=== PATIENT | male | born 1975 | race Caucasian/White ===

== ENCOUNTER 2017-07-20 00:07 | Emergency (ER) | payer BC ==
[~2017-07-20] VITALS: Ht 188 cm; Wt 72.0 kg
[2017-07-20 00:09] VITALS: BP 202/101; PULSE 52; RESP 16; TEMP 97.4; O2SAT 100
--- NOTE | 2017-07-20 00:24 | PD ---
HPI Chief Complaint: Abdominal Pain Time Seen by Provider: 00:16 Travel History International Travel<30 days: No Contact w/Intl Traveler<30days: No Traveled to known affect area: No History of Present Illness HPI C/O 12 HOUR ONSET OF NAUSEA AND DRY HEAVES, ALONG WITH EPIG REGION ABD DISCOMFORT, 01/20, NONRAD, STATES NO ALLEVIATING/AGGRAVATING FACTORS.... PCP-NO LOCAL DOC PMHX PSHX: GASTRIC BYPASS PFSH Social History Tobacco Use: No Allergies-Medications (Allergen,Severity, Reaction): Coded Allergies: No Known Drug Allergies (Verified Allergy, Unknown, 07/20/17) Reported Meds & Prescriptions Reported Meds & Active Scripts Active Ultram (Tramadol HCl) 50 Mg Tab 50 Mg PO Q4H PRN Zofran Odt (Ondansetron Odt) 4 Mg Tab 4 Mg SL Q6HR PRN Review of Systems Except as stated in HPI: all other systems reviewed are Neg General / Constitutional: No: Fever Eyes: No: Visual changes HENT: No: Headaches Cardiovascular: No: Chest Pain or Discomfort Respiratory: No: Shortness of Breath Gastrointestinal: Positive: Nausea, Abdominal Pain Genitourinary: No: Dysuria Musculoskeletal: No: Pain Skin: No Rash Neurologic: No: Weakness Psychiatric: No: Depression Endocrine: No: Polydipsia Hematologic/Lymphatic: No: Easy Bruising Physical Exam Narrative GENERAL: SKIN: Warm and dry. HEAD: Atraumatic. Normocephalic. EYES: Pupils equal and round. No scleral icterus. No injection or drainage. ENT: No nasal bleeding or discharge. Mucous membranes pink and moist. NECK: Trachea midline. No JVD. CARDIOVASCULAR: Regular rate and rhythm. RESPIRATORY: No accessory muscle use. Clear to auscultation. Breath sounds equal bilaterally. GASTROINTESTINAL: Abdomen soft, non-tender, nondistended. MUSCULOSKELETAL: Extremities without clubbing, cyanosis, or edema. No obvious deformities. NEUROLOGICAL: Awake and alert. No obvious cranial nerve deficits. Motor grossly within normal limits. Five out of 5 muscle strength in the arms and legs. Normal speech. PSYCHIATRIC: Appropriate mood and affect; insight and judgment normal. Data Data Last Documented VS Orders Orders Complete Blood Count With Diff (07/20/17 00:16) Comprehensive Metabolic Panel (07/20/17 00:16) Lipase (07/20/17 00:16) Urinalysis - C+S If Indicated (07/20/17 00:16) Ct Abd/Pel W/O Iv Contrast (07/20/17 00:16) Iv Access Insert/Monitor (07/20/17 00:16) Ecg Monitoring (07/20/17 00:16) Oximetry (07/20/17 00:16) NPO (07/20/17 00:16) Morphine Inj (Morphine Inj) (07/20/17 00:30) Ondansetron Inj (Zofran Inj) (07/20/17 00:30) Sodium Chloride 0.9% Flush (Ns Flush) (07/20/17 00:30) Electrocardiogram (07/20/17 00:16) Morphine Inj (Morphine Inj) (07/20/17 02:00) Ondansetron Inj (Zofran Inj) (07/20/17 02:00) Pantoprazole Inj (Protonix Inj) (07/20/17 02:00) Ed Discharge Order (07/20/17 02:32) Labs Laboratory Tests Test 07/20/17 00:31 07/20/17 02:25 White Blood Count 10.5 TH/MM3 Red Blood Count 5.22 MIL/MM3 Hemoglobin 15.5 GM/DL Hematocrit 46.8 % Mean Corpuscular Volume 89.8 FL Mean Corpuscular Hemoglobin 29.7 PG Mean Corpuscular Hemoglobin Concent 33.1 % Red Cell Distribution Width 13.3 % Platelet Count 269 TH/MM3 Mean Platelet Volume 8.4 FL Neutrophils (%) (Auto) 82.9 % Lymphocytes (%) (Auto) 11.0 % Monocytes (%) (Auto) 5.4 % Eosinophils (%) (Auto) 0.2 % Basophils (%) (Auto) 0.5 % Neutrophils # (Auto) 8.7 TH/MM3 Lymphocytes # (Auto) 1.2 TH/MM3 Monocytes # (Auto) 0.6 TH/MM3 Eosinophils # (Auto) 0.0 TH/MM3 Basophils # (Auto) 0.1 TH/MM3 CBC Comment DIFF FINAL Differential Comment Blood Urea Nitrogen 18 MG/DL Creatinine 0.99 MG/DL Random Glucose 149 MG/DL Total Protein 8.8 GM/DL Albumin 3.8 GM/DL Calcium Level 9.5 MG/DL Alkaline Phosphatase 115 U/L Aspartate Amino Transf (AST/SGOT) 37 U/L Alanine Aminotransferase (ALT/SGPT) 25 U/L Total Bilirubin 0.7 MG/DL Sodium Level 138 MEQ/L Potassium Level 4.4 MEQ/L Chloride Level 102 MEQ/L Carbon Dioxide Level 25.4 MEQ/L Anion Gap 11 MEQ/L Estimat Glomerular Filtration Rate 84 ML/MIN Lipase 213 U/L Urine Color YELLOW Urine Turbidity CLEAR Urine pH 6.0 Urine Specific [place] 1.028 Urine Protein 30 mg/dL Urine Glucose (UA) 300 mg/dL Urine Ketones 10 mg/dL Urine Occult Blood TRACE Urine Nitrite NEG Urine Bilirubin NEG Urine Urobilinogen 2.0 MG/DL Urine Leukocyte Esterase NEG Urine RBC 7 /hpf Urine WBC 1 /hpf Urine Squamous Epithelial Cells <1 /hpf Urine Hyaline Casts 3 /lpf Urine Mucus FEW /lpf Microscopic Urinalysis Comment CULT NOT INDICATED MDM Medical Decision Making Medical Screen Exam Complete: Yes Emergency Medical Condition: Yes Medical Record Reviewed: Yes Interpretation(s) SINUS RONY, 49, NL INTERVALS, NO STEMI PATTERN, MOTION ARTIFACT Differential Diagnosis PANCREATITIS V GASTROENTERITIS V ILEUS V SBO V APPY V COMPLICATIONS Narrative Course CMP AND CBC WERE WNL, CT NEG FOR SBO/ILEUS/APPY/ AND ONLY POSITIVE FOR ENTERITIS TYPE OF FINDINGS. PATIENT STILL C/O PAIN, WILL GIVE SECOND DOSE OF MORPHINE, PROTONIX IV X1 THEN D/C HOME Diagnosis Primary Impression: Gastroenteritis Patient Instructions: Gastroenteritis (ED), General Instructions Scripts Tramadol (Ultram) 50 Mg Tab 50 MG PO Q4H Y for PAIN, #20 TAB 0 Refills Prov: Dipesh Ro MD 07/20/17 Ondansetron Odt (Zofran Odt) 4 Mg Tab 4 MG SL Q6HR Y for Nausea/Vomiting, #30 TAB 0 Refills Prov: Dipesh Ro MD 07/20/17 Disposition: 01 DISCHARGE HOME Condition: Stable Dipesh Ro MD Jul 20, 2017 00:24
[2017-07-20] MEDS ORDERED: SODIUM CHLORIDE 0.9% FLUSH 10 ML FLUSH IV FLUSH PRN (00:30)
[2017-07-20] MEDS ORDERED: MORPHINE SULFATE 4 MG/ML INJ IV PUSH ONE ×2 (00:30→02:00)
[2017-07-20] MEDS ORDERED: ONDANSETRON HCL 4 MG/2 ML VIAL IVP ONE ×2 (00:30→02:00)
[2017-07-20 00:39] LABS: AUTOMATED NEUTROPHIL # 8.7 TH/MM3 (1.8-7.7); BASOPHIL # 0.1 TH/MM3 (0-0.2); BASOPHIL % 0.5 % (0.0-2.0); EOSINOPHIL % 0.2 % (0.0-4.0); HEMATOCRIT 46.8 % (39.0-51.0); HEMO FLAGS DIFF FINAL; LYMPHOCYTE # 1.2 TH/MM3 (1.0-4.8); MEAN CELL VOLUME 89.8 FL (80.0-100.0); MEAN CORPUSCULAR HEMOGLOBIN 29.7 PG (27.0-34.0); MEAN CORPUSCULAR HGB CONC 33.1 % (32.0-36.0); MONO % 5.4 % (0.0-8.0); NEUT % 82.9 % (16.0-70.0); PLATELET COUNT 269 TH/MM3 (150-450); RED BLOOD COUNT 5.22 MIL/MM3 (4.50-5.90); RED CELL DISTRIBUTION WIDTH 13.3 % (11.6-17.2); WHITE BLOOD COUNT 10.5 TH/MM3 (4.0-11.0)
[2017-07-20 00:51] VITALS: PULSE 50; RESP 17; O2SAT 98
[2017-07-20 00:58] LABS: ALKALINE PHOSPHATASE 115 U/L (45-117); TOTAL BILIRUBIN ADULT 0.7 MG/DL (0.2-1.0)
[2017-07-20 01:02] LABS: ALT (GPT) 25 U/L (12-78); ANION GAP 11 MEQ/L (5-15); AST (GOT) 37 U/L (15-37); BICARBONATE 25.4 MEQ/L (21.0-32.0); BLOOD UREA NITROGEN 18 MG/DL (7-18); CHLORIDE 102 MEQ/L (98-107); GLOMERULAR FILTRATION RATE 84 ML/MIN (>89); SODIUM (NA) 138 MEQ/L (136-145)
--- NOTE | 2017-07-20 01:09 | RADRPT ---
EXAM DATE/TIME: 07/20/2017 00:47 [facility] COMPARISON: No previous studies available for comparison. INDICATIONS : Right sided abdominal pain with nausea and vomiting. ORAL CONTRAST: No oral contrast ingested. RADIATION DOSE: 6.64 CTDIvol (mGy) MEDICAL HISTORY : None SURGICAL HISTORY : Gastric bypass. ENCOUNTER: Initial ACUITY: 1 day PAIN SCALE: 10/10 LOCATION: Right abdomen TECHNIQUE: Volumetric scanning of the abdomen and pelvis was performed. Using automated exposure control and ad justment of the mA and/or kV according to patient size, radiation dose was kept as low as reasonably achievable to obtain optimal diagnostic quality images. DICOM format image data is available electro nically for review and comparison. FINDINGS: Examination of the lung bases demonstrates no abnormality. No pleural fluid is identified. No pulmona ry nodules are present. There are postsurgical changes involving the stomach in this patient with gas tric bypass. There is thickening of the wall of the stomach involving the antrum and pyloric channel. The appearance is nonspecific. Endoscopy is recommended for further evaluation if clinically indicat ed. The gallbladder is normal without wall thickening or pericholecystic fluid. The pancreas demonstr ates normal contour without evidence of mass or ductal dilatation. The adrenal glands and kidneys donta ear normal bilaterally. No hydronephrosis or mass lesions are identified. Examination of the pelvis demonstrates no evidence of free fluid or pelvic mass. No abnormally enlarg ed inguinal or retroperitoneal lymph nodes are present. The bladder is unremarkable. CONCLUSION: 1. Nonspecific thickening of the wall the stomach of uncertain significance. This may reflect infecti ous or inflammatory process. Endoscopy is recommended for further evaluation if clinically indicated. Jaspal Mcgregor MD on July 20, 2017 at 1:02 Board Certified Radiologist. This report was verified electronically.
[2017-07-20 01:12] LABS: POTASSIUM 4.4 MEQ/L (3.5-5.1)
[2017-07-20] MEDS ORDERED: ZOFR4TAB3 SL (01:52)
[2017-07-20] MEDS ORDERED: TRAM50 PO (01:52)
[2017-07-20] MEDS ORDERED: PANTOPRAZOLE SODIUM 40 MG VIAL IVP ONE (02:00)
[2017-07-20 02:43] VITALS: BP 194/100; PULSE 52; RESP 20; O2SAT 100
[2017-07-20 03:17] LABS: BLOOD, URINE TRACE (NEG); GLUCOSE,URINE 300 mg/dL (NEG); HYALINE CAST, URINE 3 /lpf (RARE); KETONE, URINE 10 mg/dL (NEG); MUCUS URINE FEW /lpf (OCC); NITRITE,URINE NEG (NEG); SQUAMOUS EPITHELIAL CELL URINE <1 /hpf (0-5); URINE COLOR YELLOW (YELLW/STRAW)
[2017-07-20 03:20] LABS: COMMENT (UR) CULT NOT INDICATED; CULTURE IF INDICATED CULT NOT INDICATED
--- NOTE | 2017-07-20 18:36 | EKG ---
Date Performed: 07/20/2017 Time Performed: 00:29:26 PTAGE: 41 years EKG: SINUS BRADYCARDIA MINIMAL VOLTAGE CRITERIA FOR LVH, CONSIDER NORMAL VARIANT BORDERLINE ECG NO PREVIOUS TRACING DOCTOR: Jessica Pritchett Interpretating Date/Time 07/20/2017 18:34:46
== END 2017-07-20 03:39 | disposition home or self-care (01) ==
LOC: NEPE 00:07
DX: K52.9 Noninfective gastroenteritis and colitis, unspecified (principal); R00.1 Bradycardia, unspecified
CPT/HCPCS: 74176; 80053; 81001; 83690; 85025; 93005; 96374; 96375; 96376; 99285; C9113; J2270; J2405

== ENCOUNTER 2017-07-30 22:11 | Observation (INO) | payer BC ==
[~2017-07-30] VITALS: Ht 188 cm; Wt 63.0 kg
[~2017-07-30 22:11] MED LIST: TRAM50 PO; ZOFR4TAB3 SL
[2017-07-30 22:12] VITALS: BP 192/114; PULSE 114; RESP 20; TEMP 98.9; O2SAT 100
[2017-07-30] MEDS ORDERED: SODIUM CHLOR 0.9% 1000 ML INJ 1,000 ML IV SCH (23:12)
[2017-07-30] MEDS ORDERED: ONDANSETRON HCL 4 MG/2 ML VIAL IVP ONE (23:15)
[2017-07-30] MEDS ORDERED: SODIUM CHLORIDE 0.9% FLUSH 10 ML FLUSH IV FLUSH PRN (23:15)
[2017-07-30] MEDS ORDERED: MORPHINE SULFATE 4 MG/ML INJ IV PUSH ONE (23:15)
--- NOTE | 2017-07-30 23:17 | PD ---
HPI Chief Complaint: GI Complaint Time Seen by Provider: 23:12 Travel History International Travel<30 days: No Contact w/Intl Traveler<30days: No Traveled to known affect area: No History of Present Illness HPI 41-year-old male patient with history of gastric bypass, seen 10 days ago for abdominal pains, here because of ongoing pains for 10 days in the upper abdomen with nausea and vomiting. He denies any fevers, diarrhea, or other symptoms. He states the pain is a 9 out of 10 currently. He is supposed to follow-up with bypass specialist in the area but has not yet had a chance to follow-up. Modifying Factors: None Associated Signs & Symptoms: Upper abdominal pains for 10 days, nausea and vomiting Risk Factors: Gastric bypass history, done in [facility] Past Medical History Hypertension: Yes Past Surgical History Abdominal Surgery: Yes (GASTRIC BYPASS 2014) Social History Alcohol Use: No Tobacco Use: No Substance Use: No Allergies-Medications (Allergen,Severity, Reaction): Coded Allergies: No Known Drug Allergies (Verified Allergy, Unknown, 07/30/17) Reported Meds & Prescriptions Reported Meds & Active Scripts Active Ultram (Tramadol HCl) 50 Mg Tab 50 Mg PO Q4H PRN Zofran Odt (Ondansetron Odt) 4 Mg Tab 4 Mg SL Q6HR PRN Review of Systems Except as stated in HPI: all other systems reviewed are Neg Physical Exam Narrative GENERAL: Well-developed middle age male patient in moderate distress. Awake and oriented 3. SKIN: Focused skin assessment warm/dry. HEAD: Atraumatic. Normocephalic. EYES: Pupils equal and round. No scleral icterus. No injection or drainage. ENT: No nasal bleeding or discharge. Mucous membranes pink and moist. NECK: Trachea midline. No JVD. CARDIOVASCULAR: Regular rate and rhythm. No murmur appreciated. RESPIRATORY: No accessory muscle use. Clear to auscultation. Breath sounds equal bilaterally. GASTROINTESTINAL: Abdomen soft, upper abdominal tenderness without guarding or rebound, nondistended. Hepatic and splenic margins not palpable. MUSCULOSKELETAL: No obvious deformities. No clubbing. No cyanosis. No edema. NEUROLOGICAL: Awake and alert. No obvious cranial nerve deficits. Motor grossly within normal limits. Normal speech. PSYCHIATRIC: Appropriate mood and affect; insight and judgment normal. Data Data Last Documented VS Vital Signs Date Time Temp Pulse Resp B/P (MAP) Pulse Ox O2 Delivery O2 Flow Rate FiO2 07/30/17 23:17 18 07/30/17 22:12 98.9 114 192/114 (140) 100 Room Air Orders Orders Complete Blood Count With Diff (07/30/17 23:12) Comprehensive Metabolic Panel (07/30/17 23:12) Lipase (07/30/17 23:12) Urinalysis - C+S If Indicated (07/30/17 23:12) Ct Abd/Pel W Iv Contrast(Rout) (07/30/17 23:12) Iv Access Insert/Monitor (07/30/17 23:12) Ecg Monitoring (07/30/17 23:12) Oximetry (07/30/17 23:12) Morphine Inj (Morphine Inj) (07/30/17 23:15) Ondansetron Inj (Zofran Inj) (07/30/17 23:15) Sodium Chlor 0.9% 1000 Ml Inj (Ns 1000 M (07/30/17 23:12) Sodium Chloride 0.9% Flush (Ns Flush) (07/30/17 23:15) Morphine Inj (Morphine Inj) (07/31/17 01:15) Iohexol 350 Inj (Omnipaque 350 Inj) (07/31/17 01:36) Upper Gi Series With [employer] (07/31/17 ) Labs Laboratory Tests Test 07/30/17 00:30 White Blood Count 9.4 TH/MM3 Red Blood Count 4.23 MIL/MM3 Hemoglobin 12.8 GM/DL Hematocrit 37.0 % Mean Corpuscular Volume 87.3 FL Mean Corpuscular Hemoglobin 30.3 PG Mean Corpuscular Hemoglobin Concent 34.7 % Red Cell Distribution Width 12.9 % Platelet Count 261 TH/MM3 Mean Platelet Volume 8.2 FL Neutrophils (%) (Auto) 77.7 % Lymphocytes (%) (Auto) 12.2 % Monocytes (%) (Auto) 9.6 % Eosinophils (%) (Auto) 0.2 % Basophils (%) (Auto) 0.3 % Neutrophils # (Auto) 7.3 TH/MM3 Lymphocytes # (Auto) 1.2 TH/MM3 Monocytes # (Auto) 0.9 TH/MM3 Eosinophils # (Auto) 0.0 TH/MM3 Basophils # (Auto) 0.0 TH/MM3 CBC Comment DIFF FINAL Differential Comment Urine Color YELLOW Urine Turbidity HAZY Urine pH 8.5 Urine Specific [place] 1.020 Urine Protein TRACE mg/dL Urine Glucose (UA) NEG mg/dL Urine Ketones 40 mg/dL Urine Occult Blood NEG Urine Nitrite NEG Urine Bilirubin NEG Urine Urobilinogen 4.0 MG/DL Urine Leukocyte Esterase NEG Urine RBC 0-3 /hpf Urine WBC 0-2 /hpf Urine Squamous Epithelial Cells 0-5 /hpf Urine Amorphous Sediment LARGE Urine Bacteria RARE /hpf Microscopic Urinalysis Comment CULT NOT INDICATED Blood Urea Nitrogen 22 MG/DL Creatinine 0.73 MG/DL Random Glucose 98 MG/DL Total Protein 7.5 GM/DL Albumin 3.3 GM/DL Calcium Level 8.8 MG/DL Alkaline Phosphatase 101 U/L Aspartate Amino Transf (AST/SGOT) 13 U/L Alanine Aminotransferase (ALT/SGPT) 15 U/L Total Bilirubin 0.6 MG/DL Sodium Level 135 MEQ/L Potassium Level 3.4 MEQ/L Chloride Level 99 MEQ/L Carbon Dioxide Level 25.8 MEQ/L Anion Gap 10 MEQ/L Estimat Glomerular Filtration Rate 120 ML/MIN Lipase 177 U/L [facility] Medical Decision Making Medical Screen Exam Complete: Yes Emergency Medical Condition: Yes Medical Record Reviewed: Yes Interpretation(s) Laboratory Tests Test 07/30/17 00:30 Red Blood Count 4.23 MIL/MM3 (4.50-5.90) Hemoglobin 12.8 GM/DL (13.0-17.0) Hematocrit 37.0 % (39.0-51.0) Neutrophils (%) (Auto) 77.7 % (16.0-70.0) Monocytes (%) (Auto) 9.6 % (0.0-8.0) Urine Turbidity HAZY (CLEAR) Urine Ketones 40 mg/dL (NEG) Urine Urobilinogen 4.0 MG/DL (LESS THAN Urine Bacteria RARE /hpf (NONE) Blood Urea Nitrogen 22 MG/DL (7-18) Albumin 3.3 GM/DL (3.4-5.0) Aspartate Amino Transf (AST/SGOT) 13 U/L (15-37) Sodium Level 135 MEQ/L (136-145) Potassium Level 3.4 MEQ/L (3.5-5.1) Last 24 hours Impressions Abdomen/Pelvis CT 07/30/17 [id number] Signed Impressions: Service Date/Time: Monday, July 31, 2017 01:23 - CONCLUSION: 1. There is a mild amount of free fluid in the dependent pelvis. 2. No dilated loops of small or large bowel. Bao Gardner MD Differential Diagnosis Upper abdominal pains with nausea and vomiting: Obstruction versus gastritis versus pancreatitis versus gastroenteritis versus bypass related issues Narrative Course Lab work did not show any significant metabolic issues or acute renal failure or UTI. CAT scan was unremarkable for any signs of acute processes. However, patient has required 2 doses of morphine at this point due to pain. He appears to be doing poorly for the past 10 days. Apparently had talked to Dr. Howell's office regarding these issues and has been told to come to the ER and requests bypass surgery consultation should symptoms worsen. At this point, case was discussed with Dr. Howell who would like me to do an upper GI series and get the patient admitted as an observation. Case was discussed with Dr. Farnsworth for admission. Diagnosis Primary Impression: Intractable abdominal pain Additional Impression: H/O gastric bypass Admitting Information Admitting Physician Requests: Admit Rocio Alvarez MD Jul 30, 2017 23:17
[2017-07-31] VITALS (7 sets, daily range): BP systolic 0–204; BP diastolic 0–109; PULSE 45–56; RESP 18–24; TEMP 96.1–98.4; O2SAT 96–100
[2017-07-31 00:01] LABS: AUTOMATED NEUTROPHIL # 7.3 TH/MM3 (1.8-7.7); BASOPHIL % 0.3 % (0.0-2.0); EOSINOPHIL % 0.2 % (0.0-4.0); HEMO FLAGS DIFF FINAL; LYMPH % 12.2 % (9.0-44.0); LYMPHOCYTE # 1.2 TH/MM3 (1.0-4.8); MEAN CELL VOLUME 87.3 FL (80.0-100.0); MEAN CORPUSCULAR HEMOGLOBIN 30.3 PG (27.0-34.0); MEAN CORPUSCULAR HGB CONC 34.7 % (32.0-36.0); MONO % 9.6 % (0.0-8.0); NEUT % 77.7 % (16.0-70.0); PLATELET COUNT 261 TH/MM3 (150-450); RED BLOOD COUNT 4.23 MIL/MM3 (4.50-5.90); RED CELL DISTRIBUTION WIDTH 12.9 % (11.6-17.2); WHITE BLOOD COUNT 9.4 TH/MM3 (4.0-11.0)
[2017-07-31 00:19] LABS: BLOOD, URINE NEG (NEG); GLUCOSE,URINE NEG (NEG); KETONE, URINE 40 mg/dL (NEG); NITRITE,URINE NEG (NEG); PH, URINE 8.5 (5.0-8.5); URINE COLOR YELLOW (YELLW/STRAW)
[2017-07-31 00:21] LABS: ALT (GPT) 15 U/L (12-78); ANION GAP 10 MEQ/L (5-15); AST (GOT) 13 U/L (15-37); BICARBONATE 25.8 MEQ/L (21.0-32.0); BLOOD UREA NITROGEN 22 MG/DL (7-18); CHLORIDE 99 MEQ/L (98-107); GLOMERULAR FILTRATION RATE 120 ML/MIN (>89); POTASSIUM 3.4 MEQ/L (3.5-5.1); SODIUM (NA) 135 MEQ/L (136-145)
[2017-07-31 00:24] LABS: ALKALINE PHOSPHATASE 101 U/L (45-117); TOTAL BILIRUBIN ADULT 0.6 MG/DL (0.2-1.0)
[2017-07-31 00:43] LABS: BACTERIA, URINE RARE /hpf; RBC, URINE 0-3 /hpf (0-3); SQUAMOUS EPITHELIAL CELL URINE 0-5 /hpf (0-5); WBC, URINE 0-2 /hpf (0-5)
[2017-07-31 00:44] LABS: COMMENT (UR) CULT NOT INDICATED; CULTURE IF INDICATED CULT NOT INDICATED
[2017-07-31] MEDS ORDERED: MORPHINE SULFATE 2 MG/ML INJ IV PUSH ONE (01:15)
[2017-07-31] MEDS ORDERED: IOHEXOL 350 MG/ML 10 ML VIAL (for RAD DIAG) IVCONTRAST ONE (01:36)
--- NOTE | 2017-07-31 01:44 | RADRPT ---
EXAM DATE/TIME: 07/31/2017 01:23 [facility] COMPARISON: No previous studies available for comparison. INDICATIONS : Abdominal pain. IV CONTRAST: 94 cc Omnipaque 350 (iohexol) IV ORAL CONTRAST: No oral contrast ingested. RADIATION DOSE: 6.64 CTDIvol (mGy) MEDICAL HISTORY : Hypertension. SURGICAL HISTORY : Gastric bypass. ENCOUNTER: Initial ACUITY: 2 days PAIN SCALE: 7/10 LOCATION: abdomen TECHNIQUE: Volumetric scanning of the abdomen and pelvis was performed. Using automated exposure control and ad justment of the mA and/or kV according to patient size, radiation dose was kept as low as reasonably achievable to obtain optimal diagnostic quality images. DICOM format image data is available electro nically for review and comparison. FINDINGS: LOWER LUNGS: The visualized lower lungs are clear. LIVER: Homogeneous density without lesion. There is no dilation of the biliary tree. No calcified gallston es. SPLEEN: Normal size without lesion. PANCREAS: Within normal limits. KIDNEYS: Normal in size and shape. There is no mass, stone or hydronephrosis. ADRENAL GLANDS: Within normal limits. VASCULAR: There is no aortic aneurysm. BOWEL/MESENTERY: Nondilated loops of small or large bowel. Surgical suture about the stomach. There is a mild amount of free fluid in the dependent pelvis between the rectum and urinary bladder measuring up to 12 mm i n thickness. ABDOMINAL WALL: Within normal limits. RETROPERITONEUM: There is no lymphadenopathy. BLADDER: No wall thickening or mass. REPRODUCTIVE: Within normal limits. INGUINAL: There is no lymphadenopathy or hernia. MUSCULOSKELETAL: Within normal limits for patient age. CONCLUSION: 1. There is a mild amount of free fluid in the dependent pelvis. 2. No dilated loops of small or large bowel. Bao Gardner MD on July 31, 2017 at 1:39 Board Certified Radiologist. This report was verified electronically.
[2017-07-31] MEDS ORDERED: PROPOFOL 200 MG/20 ML AMP IV ONE (02:30)
[2017-07-31] MEDS ORDERED: SODIUM CHLORIDE 0.9% FLUSH 10 ML FLUSH IV FLUSH PRN (02:30)
[2017-07-31] MEDS ORDERED: BISACODYL 10 MG SUPP RECTAL PRN (02:30)
[2017-07-31] MEDS ORDERED: LACTULOSE SYRUP 20 GM/30 ML CUP PO PRN (02:30)
[2017-07-31] MEDS ORDERED: METOPROLOL TARTRATE 5 MG/5 ML VIAL IV PUSH ONE (02:30)
[2017-07-31] MEDS ORDERED: ACETAMINOPHEN/HYDROcodone 325 MG/5 MG TAB PO PRN (02:30)
[2017-07-31] MEDS ORDERED: ONDANSETRON HCL 4 MG/2 ML VIAL IVP PRN (02:30)
[2017-07-31] MEDS ORDERED: MAGNESIUM HYDROXIDE SUSP 30 ML CUP PO PRN (02:30)
[2017-07-31] MEDS ORDERED: ACETAMINOPHEN 325 MG TAB PO PRN (02:30)
[2017-07-31] MEDS ORDERED: SENNOSIDES 8.6 MG TAB PO PRN (02:30)
[2017-07-31] MEDS ORDERED: MORPHINE SULFATE 2 MG/ML INJ IV PRN (02:45)
[2017-07-31] MEDS: SODIUM CHLOR 0.9% 1000 ML INJ 1,000 ML IV SCH ×2 (03:01→13:04)
--- NOTE | 2017-07-31 03:14 | HHI.HP ---
[facility] No Primary Care Physician Admission Diagnosis intractable abdominal pain/gastric bypass patient Diagnoses: (1) Intractable abdominal pain Diagnosis: Principal (2) H/O gastric bypass Diagnosis: Principal (3) Hypokalemia Diagnosis: Principal (4) HTN (hypertension) Diagnosis: Principal (5) Anemia Diagnosis: Principal Travel History International Travel<30 Days: No Contact w/Intl Traveler <30 Da: No Traveled to Known Affected Are: No History of Present Illness This is a 41-year-old male with a PMH of Gastric Bypass 2014 in [facility] who presented to the ER with complaints of abdominal pain in addition to nausea and vomiting for approx 10 days. Seen in ER on 07/20/17 for similar complaints, CT Abd/Pelvis at that time w/ nonspecific thickening of wall of stomach of uncertain significance, endoscopy recommended, labs unremarkable, d/c'd from ER w/ Tramadol and Zofran. Returns now w/ ongoing abdominal pain unrelieved by Tramadol. On arrival, BP 192/114, HR 114, O2 sat 100% on RA, Afebrile. Hemoglobin 12.8, previously 15.5 on 07/20/17. Chemistry essentially remarkable except for BUN 22. K+ 3.4. U/a negative. CT Abd/Pelvis w/ mild amount of free fluid in dependent pelvis, no dilated loops of small and large bowel. Dr. Howell consulted by ER physician, recommended Upper GI Series and will eval in am. Review of Systems Except as stated in HPI: all other systems reviewed are Neg Past Family Social History Past Medical History PMH: Gastric Bypass 2015 Past Surgical History PAST SURGICAL HISTORY: Gastric Bypass 2014 Allergies: Coded Allergies: No Known Drug Allergies (Verified Allergy, Unknown, 07/30/17) Family History PAST FAMILY HISTORY: Reviewed. No h/o DM or CAD Social History PAST SOCIAL HISTORY: Negative for alcohol, tobacco or drugs. Physical Exam Vital Signs Vital Signs Date Time Temp Pulse Resp B/P (MAP) Pulse Ox O2 Delivery O2 Flow Rate FiO2 07/30/17 23:17 18 07/30/17 22:12 98.9 114 20 192/114 (140) 100 Room Air Physical Exam PE: GENERAL: Middle-aged male in no acute distress. HEENT: PERRLA, EOMI. No scleral icterus or conjunctival pallor. No lid lag or facial droop. CARDIOVASCULAR: Regular rate and rhythm. No obvious murmurs to auscultation. No chest tenderness to palpation. RESPIRATORY: No obvious rhonchi or wheezing. Clear to auscultation. Breath sounds equal bilaterally. GASTROINTESTINAL: Abdomen soft, generalized tenderness to palpation, nondistended. BS normal. MUSCULOSKELETAL: Extremities without clubbing, cyanosis, or edema. No obvious deformities. NEUROLOGICAL: Awake, alert and oriented x4. No focal neurologic deficits. Moving both upper and lower extremities spontaneously. Result Diagram: 07/30/172907/30/1729 Caprini VTE Risk Assessment Caprini VTE Risk Assessment: No/Low Risk (score <= 1) Caprini Risk Assessment Model Point Value = 1 Point Value = 2 Point Value = 3 Point Value = 5 Age 41-60 Minor surgery BMI > 25 kg/m2 Swollen legs Varicose veins or History of unexplained or recurrent spontaneous Oral contraceptives or hormone replacement Sepsis (< 1 month) Serious lung disease, including pneumonia (< 1 month) Abnormal pulmonary function Acute myocardial infarction Congestive heart failure (< 1 month) History of inflammatory bowel disease Medical patient at bed rest Age 61-74 Arthroscopic surgery Major open surgery (> 45 min) Laparoscopic surgery (> 45 min) Malignancy Confined to bed (> 72 hours) Immobilizing plaster cast Central venous access Age >= 75 History of VTE Family history of VTE Factor V Leiden Prothrombin [id number] Lupus anticoagulant Anticardiolipin antibodies Elevated serum homocysteine Heparin-induced thrombocytopenia Other congenital or acquired thrombophilia Stroke (< 1 month) Elective arthroplasty Hip, pelvis, or leg fracture Acute spinal cord injury (< 1 month) Prophylaxis Regimen Total Risk Factor Score Risk Level Prophylaxis Regimen 0-1 Low Early ambulation 2 Moderate Order ONE of the following: *Sequential Compression Device (SCD) *Heparin 5000 units SQ BID 3-4 Higher Order ONE of the following medications: *Heparin 5000 units SQ TID *Enoxaparin/Lovenox 40 mg SQ daily (WT < 150 kg, CrCl > 30 mL/min) *Enoxaparin/Lovenox 30 mg SQ daily (WT < 150 kg, CrCl > 10-29 mL/min) *Enoxaparin/Lovenox 30 mg SQ BID (WT < 150 kg, CrCl > 30 mL/min) AND/OR *Sequential Compression Device (SCD) 5 or more Highest Order ONE of the following medications: *Heparin 5000 units SQ TID (Preferred with Epidurals) *Enoxaparin/Lovenox 40 mg SQ daily (WT < 150 kg, CrCl > 30 mL/min) *Enoxaparin/Lovenox 30 mg SQ daily (WT < 150 kg, CrCl > 10-29 mL/min) *Enoxaparin/Lovenox 30 mg SQ BID (WT < 150 kg, CrCl > 30 mL/min) AND *Sequential Compression Device (SCD) Assessment and Plan Problem List: (1) Intractable abdominal pain ICD Code: R10.9 - Unspecified abdominal pain Status: Acute (2) Hypokalemia ICD Code: E87.6 - Hypokalemia (3) H/O gastric bypass ICD Code: Z98.890 - Other specified postprocedural states Status: Acute (4) HTN (hypertension) ICD Code: I10 - Essential (primary) hypertension (5) Anemia ICD Code: D64.9 - Anemia, unspecified Assessment and Plan A/P: 1. Intractable Abd Pain: c/o abdominal pain x10 days, seen in ER on 07/20/17 for similar complaints, CT Abd/Pelvis w/ thickening of stomach, unclear etiology , now w/ ongoing abdominal pain. CT Abd/Pelvis now w/ no acute findings, images reviewed by me. Dr. Howell consulted, recommended GI Series, currently pending. Analgesics/antiemetics as needed. Clear liquid. 2. H/o [facility]: [facility], pending follow up w/ local surgeon. 3. Hypokalemia: Mild. K+ 3.4. Repeat labs and replace as needed. 4. HTN: Uncontrolled. BP 190's, likely compounded by pain complaints. Lopressor IV x1. Monitor BP. 5. Anemia: Hgb 12.8, previously 15.5 on 07/20/17. No active bleeding noted. Monitor Hgb/Hct. 6. DVT Prophylaxis: SCD/Teds. 7. Social work for d/c planning as needed. 8. Case discussed w/ ER physician at length. Problem Qualifiers (1) Anemia: Rosa Farnsworth MD Jul 31, 2017 03:14
[2017-07-31] MEDS: SODIUM CHLORIDE 0.9% FLUSH 10 ML FLUSH IV FLUSH SCH ×2 (07:58→21:48)
[2017-07-31] MEDS: DOCUSATE SODIUM 50 MG/SENNA 8.6 MG TAB PO SCH ×2 (07:58→21:00)
[2017-07-31] MEDS ORDERED: HYDROmorphone HCL PF 1 MG/ML VIAL IV PUSH PRN (08:15)
[2017-07-31] MEDS ORDERED: DIATRIZOATE MEGLUM/DIATRIZOATE SOD 120 ML BTL (for RAD DIAG) PO ONE (09:30)
--- NOTE | 2017-07-31 09:39 | PD.CONS ---
HPI History of Present Illness This is a 41 year old male with hx roshan en y and ring procedure in 2015 who presented with abd pain, nausea vomiting, weakness, hiccups, intermittent fever , hypertention. Onset 3 weeks ago. n/v is intermittent, he vomits mostly saliva and has dry heaving. He does not vomit food. Solid food makes him nauseous and starts dry heaves. He is having RUQ sharp stabbing pains and LUQ pressure. The hiccups make the pain worse. The pain at times goes to his upper back and sides of his arms. Pain is crampy and intermittent. Never had pain like this before. No blood in vomit, no diarrhea, no acid reflux or heartburn, no blood in stool or black tarry stool. NO BM in 3 days. Has been consuming only liquids, cannot tolerate liquids. he had EGD in [facility] prior to his bariatric surgery, can recall no abnormal findings. He has lost 20lbs in the last 2 months that he feels is at a faster rate than he had been losing d /t surgery. Never had colonoscopy. Pt had appt to see Dr Howell in office next week. (Hailey Rhodes) PFSH Past Medical History PMH: Gastric Bypass 2014 Past Surgical History PAST SURGICAL HISTORY: Gastric Bypass 2014 (Hailey Rhodes) Coded Allergies: No Known Drug Allergies (Verified Allergy, Unknown, 07/30/17) Family History PAST FAMILY HISTORY: Reviewed. No h/o DM or CAD Social History PAST SOCIAL HISTORY: Negative for alcohol or drugs. Was smoking 5 cigarettes daily but has not smoked in last couple weeks d/t illness. (Hailey Rhodes) Review of Systems Constitutional: COMPLAINS OF: Fever Eyes: DENIES: Blurred vision Ears, nose, mouth, throat: DENIES: Hearing loss Respiratory: DENIES: Hemoptysis Cardiovascular: DENIES: Chest pain Gastrointestinal: COMPLAINS OF: Abdominal pain, Constipation, Nausea, Vomiting , DENIES: Black stools, Bloody stools, Diarrhea, Swelling of Abdomen, Heartburn , Hematemesis Genitourinary: DENIES: Hematuria Musculoskeletal: DENIES: Joint Swelling Integumentary: DENIES: Rash Hematologic/lymphatic: DENIES: Bruising Immunologic/allergic: DENIES: Eczema Neurologic: DENIES: Abnormal gait Psychiatric: DENIES: Confusion (Hailey Rhodes) GI Exam Vitals I&O Vital Signs Date Time Temp Pulse Resp B/P (MAP) Pulse Ox O2 Delivery O2 Flow Rate FiO2 07/31/17 08:05 186/109 (134) 07/31/17 08:02 97.3 52 18 0/0 (0) 100 07/31/17 05:16 98.4 56 18 151/94 (113) 96 07/31/17 05:01 16 07/31/17 02:50 55 18 168/101 (123) 98 Room Air 07/30/17 23:17 18 07/30/17 22:12 98.9 114 20 192/114 (140) 100 Room Air Physical Examination GENERAL: thin HEENT: PERRL; normocephalic; atraumatic; no jaundice. CHEST: CTA CARDIAC: RRR ABDOMEN: Soft, nondistended, LUQ TTP; no hepatosplenomegaly; bowel sounds are present in all four quadrants. EXTREMITIES: No clubbing, cyanosis, or edema. SKIN: Normal; no rash; no jaundice. [employer]: No focal deficits; alert and oriented times three. (Hailey Rhodes) Assessment and Plan Plan ASSESSMENT - Abd pain, n/v - RUQ pain and LUQ pressure, nausea, dry heaves, hiccups. labs unremarkable. CT 07/20 showed nonspecific thickening stomach wall and CT shows mild amt free fluid dependent pelvis. hx roshan en y bypass 2014. Normal EGD 2014. never had colonoscopy. GS consulted, UGI series pending. Dr Howell planning to do EGD and follow pt. - anemia - mild. normocytic. hgb did drop from 15.5 to 12.8 since 07/20/17. No louis bleeding. PLAN - stool for occult blood - diet per GS - await UGI series - await GS eval - GS will do EGD and follow pt, d/w primary - supportive care - GI will sign off, please reconsult if needed. This pt seen by myself and Dr Rangel and this note is written on his behalf (Hailey Rhodes) Physician Comments Patient seen and examined Agree with above Continue with current supportive care Monitor labs It seems at this point that his issue is more surgical and therefore we will defer to the surgery service We will sign off (Forrest Rangel MD) Hailey Rhodes Jul 31, 2017 09:39 Forrest Rangel MD Jul 31, 2017 20:02
--- NOTE | 2017-07-31 09:40 | RADRPT ---
EXAM DATE/TIME: 07/31/2017 09:09 This report includes an Addendum and supersedes previous reports for this exam. [facility] COMPARISON: CT ABDOMEN & PELVIS W CONTRAST, July 31, 2017, 1:23. INDICATIONS : Abdominal pain, nausea, vomiting FLUORO TIME: 0.9 minutes IMAGE COUNT: 16 CONTRAST: 1. MD Chavis MEDICAL HISTORY : Hypertension. SURGICAL HISTORY : Gastric bypass. ENCOUNTER: Initial ACUITY: 2 weeks PAIN SCORE: 7/10 LOCATION: Bilateral upper quadrant FINDINGS: Preliminary film demonstrates postsurgical findings in the left upper quadrant. Mild left convex thor acolumbar scoliosis and prominent left-sided upper lumbar spine osteophytes. Bowel gas pattern within normal limits. Patient swallowed Gastrografin contrast. Contrast passed through the esophagus and into the gastric r emnant without delay. Contrast passes into the proximal small bowel without delay. No evidence of shane k CONCLUSION: Postsurgical appearance consistent with the history of gastric bypass. No evidence of leak or obstruc tion. Terell Jin MD on July 31, 2017 at 9:35 Board Certified Radiologist. This report was verified electronically. ADDENDUM: There is extension of contrast into the gastric remnant. Terell Jin MD on July 31, 2017 at 10:01 Board Certified Radiologist. This report was verified electronically.
--- NOTE | 2017-07-31 10:21 | HHI.PR ---
Objective Vitals/I&O Vital Signs Date Time Temp Pulse Resp B/P (MAP) Pulse Ox O2 Delivery O2 Flow Rate FiO2 07/31/17 09:50 16 07/31/17 08:05 186/109 (134) 07/31/17 08:02 97.3 52 100 07/31/17 02:50 Room Air A/P Assessment and Plan hx rygb epigastric pain, +smoking, full consult dictated, concern for GJ ulcer, possible G-G fistula PLAN ppi, carafate NPO at me will plan for EGD likely tomorrow Michael Howell MD Jul 31, 2017 10:21
--- NOTE | 2017-07-31 11:14 | HHI.PR ---
Subjective Remarks Follow up for abdominal pain/nausea/vomiting. The patient reports excruciating 10/10 pain earlier this morning, unrelieved by IV morphine. Given IV dilaudid with significant relief of pain and he was able to tolerate clear liquids for breakfast. He locates the pain mostly to the LUQ/epigastric area with some radiation to the RUQ. His nausea has been fairly well controlled with IV zofran. He has not had BM in 3 days however reports very minimal oral intake over the past 7-10days. He denies any recent sick contacts or eating any raw/ undercooked foods. Denies any recent fevers/chills, however did feel flushed at times. He has an upcoming appointment to establish with Dr. Howell on 08/04. Objective Vitals Vital Signs Date Time Temp Pulse Resp B/P (MAP) Pulse Ox O2 Delivery O2 Flow Rate FiO2 07/31/17 09:50 16 07/31/17 09:50 16 07/31/17 08:05 186/109 (134) 07/31/17 08:02 97.3 52 18 0/0 (0) 100 07/31/17 05:16 98.4 56 18 151/94 (113) 96 07/31/17 05:01 16 07/31/17 02:50 55 18 168/101 (123) 98 Room Air 07/30/17 23:17 18 07/30/17 22:12 98.9 114 20 192/114 (140) 100 Room Air Result Diagram: 07/30/17 0030 07/30/17 0030 Imaging Last Impressions Upper GI Series 07/31/17 0000 Signed Impressions: Service Date/Time: Monday, July 31, 2017 09:09 - CONCLUSION: Postsurgical appearance consistent with the history of gastric bypass. No evidence of leak or obstruction. Terell Jin MD ADDENDUM: There is extension of contrast into the gastric remnant. Terell Jin MD Abdomen/Pelvis CT 07/30/17 2314 Signed Impressions: Service Date/Time: Monday, July 31, 2017 01:23 - CONCLUSION: 1. There is a mild amount of free fluid in the dependent pelvis. 2. No dilated loops of small or large bowel. Bao Gardner MD Objective Remarks GENERAL: Well-nourished, well-developed pleasant middle aged male patient in NAD. at bedside. SKIN: Warm and dry. No rash. HEENT: Normocephalic. Atraumatic.Pupils equal and round. Mucous membranes pink and moist. CARDIOVASCULAR: Regular rate and rhythm. S1, S2 noted. No murmur appreciated. RESPIRATORY: No accessory muscle use. Clear to auscultation. Breath sounds equal bilaterally. GASTROINTESTINAL: Scaphoid abdomen, soft, nondistended, mild TTP at LUQ and epigastric area. Normoactive bowel sounds x4. MUSCULOSKELETAL: No obvious deformities. Extremities without clubbing, cyanosis , or edema. NEUROLOGICAL: Awake and alert. No obvious cranial nerve deficits. Motor grossly within normal limits. Normal speech. PSYCHIATRIC: Appropriate mood and affect; insight and judgment normal. Medications and IVs Current Medications Medications (Trade) Dose Ordered Sig/Daniel Route Start Time Stop Time Status Last Admin Sodium Chloride 1,000 ml @ 100 mls/hr Q10H IV 07/31/17 02:26 07/31/17 03:01 (NS Flush) 2 ml UNSCH PRN IV FLUSH 07/31/17 02:30 (NS Flush) 2 ml BID IV FLUSH 07/31/17 09:00 07/31/17 07:58 (Zofran Inj) 4 mg Q6H PRN IVP 07/31/17 02:30 07/31/17 08:07 (Tylenol) 650 mg Q6H PRN PO 07/31/17 02:30 ([place] 5-325 Mg) 1 tab Q4H PRN PO 07/31/17 02:30 07/31/17 07:58 (Morphine Inj) 2 mg Q3H PRN IV 07/31/17 02:45 07/31/17 04:56 (Irene-Colace) 1 tab BID PO 07/31/17 09:00 07/31/17 07:58 (Milk Of Magnesia Liq) 30 ml Q12H PRN PO 07/31/17 02:30 (Senokot) 17.2 mg Q12H PRN PO 07/31/17 02:30 (Dulcolax Supp) 10 mg DAILY PRN RECTAL 07/31/17 02:30 (Lactulose Liq) 30 ml DAILY PRN PO 07/31/17 02:30 (Dilaudid Pf Inj) 1 mg Q4H PRN IV PUSH 07/31/17 08:15 07/31/17 08:41 (Protonix Inj) 40 mg Q12H IV PUSH 07/31/17 11:00 (Carafate Liq) 1 gm Q6H PO 07/31/17 12:00 A/P Problem List: (1) Intractable abdominal pain ICD Code: R10.9 - Unspecified abdominal pain Status: Acute (2) Hypokalemia ICD Code: E87.6 - Hypokalemia (3) H/O gastric bypass ICD Code: Z98.890 - Other specified postprocedural states Status: Acute (4) HTN (hypertension) ICD Code: I10 - Essential (primary) hypertension (5) Anemia ICD Code: D64.9 - Anemia, unspecified Assessment and Plan 41-year-old male with a PMH of Gastric Bypass 2014 in [facility] who presented to the ER with complaints of abdominal pain in addition to nausea and vomiting for approx 10 days. Intractable Abd Pain with hx of Gastric Bypass: c/o abdominal pain x10 days, seen in ER on 07/20/17 for similar complaints, CT Abd/Pelvis w/ thickening of stomach, unclear etiology, now w/ ongoing abdominal pain. CT Abd/Pelvis now w/ no acute findings, images reviewed by me. -General surgery Dr. Howell consulted -Upper GI series reviewed, shows postsurgical changes consistent with gastric bypass; no evidence of leak/obstruction -Continue clear liquid diet for now -Initially consulted GI for endoscopy however discussed with Dr. Howell, he will proceed with EGD tomorrow -Discussed with Dr. Howell, possible ulcer, started on IV Protonix bid and Carafate q6h -Continue supportive treatment with IVF, antiemetics, and analgesics as needed H/o Gastric Bypass: in [facility] 2014, plans to follow up with Dr. Howell as outpatient. Hypokalemia: Mild. K+ 3.4. Repeat labs and replace as needed. HTN: Uncontrolled. BP 190's, likely compounded by pain complaints. Lopressor IV x1. Monitor BP. Anemia: Hgb 12.8, previously 15.5 on 07/20/17. No active bleeding noted. Monitor Hgb/Hct. DVT Prophylaxis: SCD/Teds. Avoid chemoprophylaxis with upcoming procedure. Discharge Planning Planning EGD tomorrow. Hopefully discharge tomorrow if symptoms continue to improve. Problem Qualifiers (1) Anemia: Anitha Pollock PA-C Jul 31, 2017 11:14 am
[2017-07-31] MEDS: PANTOPRAZOLE SODIUM 40 MG VIAL IV PUSH SCH ×2 (13:03→21:48)
[2017-07-31] MEDS: SUCRALFATE 1 GM/10 ML CUP PO SCH ×2 (13:03→17:41)
--- NOTE | 2017-07-31 15:23 | MB ---
cc: JOAQUIM ELY MD DATE OF CONSULTATION: 07/31/2017. REASON FOR CONSULTATION / CHIEF COMPLAINT: Epigastric abdominal pain. Nausea. Vomiting. History of gastric bypass. HISTORY OF PRESENT ILLNESS: The patient is a 41-year-old male with past history of hypertension and morbid obesity. The patient underwent gastric bypass in 2014 in [facility]. He presented to the emergency department approximately ten days ago with complaints of severe epigastric pain. At that time, he had a CT scan that was relatively nonspecific basically concerning for gastritis and was sent to follow up as an outpatient with bariatric surgical clinic. However, he had recurrence of his abdominal pain and re-presented with similar more acute symptoms. Therefore a surgical consultation was done. On my exam, the patient is resting more comfortably. He states his initial pain was 10/10. It is currently a 3/10 after IV Dilaudid with some improvement. He notes the pain is sharp and radiates somewhat to the right and left upper quadrants. He has never had pain quite significant as this and says it is better with pain medications and staying still and worse with movement. He has otherwise been hemodynamically stable with normal white blood cell count. The patient stated a relatively uneventful past surgical history. He notes that since the gastric bypass he was initially over 300 pounds but is now at 140 pounds. He has significant weight loss. He does take his vitamins; however, this has been difficult given the recent gagging and nausea and vomiting. The patient had further workup with a CT scan, which I reviewed showing again relatively nonspecific however the patient does note to have air within his remnant stomach, which is not a total normal variant. His repeat scan shows small air in the remnant stomach; however, less. Upper GI shows contrast that goes through relatively freely. PAST MEDICAL HISTORY: 1. Resolved hypertension. 2. History of morbid obesity. PAST SURGICAL HISTORY: 1. Gastric bypass in 2015 in [facility], laparoscopic. ALLERGIES: NO KNOWN DRUG ALLERGIES. MEDICATIONS: See the electronic medical record. FAMILY HISTORY: Denies diabetes or hypertension. SOCIAL HISTORY: Positive for smoking over 15 years approximately five to ten cigarettes a day and negative for ethyl alcohol or IV drug abuse. REVIEW OF SYSTEMS: GENERAL: Denies fevers, chills. HEAD, EYES, EARS, NOSE, THROAT: Denies eye pain, ear pain. NECK: Denies swelling or pain. LUNGS: Denies cough or wheeze. HEART: Denies palpitation or chest pain. ABDOMEN: Complained of nausea, vomiting, abdominal pain. : Denies dysuria, hematuria. ENDOCRINE: Denies polyuria or polydipsia. EXTREMITIES: Denies arthralgias or myalgias. INTEGUMENT: Denies new masses or lesions. PSYCHIATRIC: Denies change in sensorium. PHYSICAL EXAMINATION: GENERAL: Patient in no acute distress. VITAL SIGNS: Temperature 98.9, pulse 114, respirations 20, blood pressure 158/95, saturation 99%, respirations 18. HEAD, EYES, EARS, NOSE, THROAT: Pupils equal, round and reactive. Normocephalic and atraumatic. NECK: The neck is supple. Trachea is midline. LUNGS: Clear to auscultation bilaterally. HEART: Regular rhythm. S1 and S2. ABDOMEN: Positive mild tenderness to palpation epigastric area. Somewhat scaphoid abdomen. Well-healed laparoscopic surgical scars. No rebound. No guarding. EXTREMITIES: Warm and well-perfused. No edema. NEUROLOGIC: GCS of 15. 5/5 motor all extremities. INTEGUMENT: No obvious masses or lesions. PSYCHIATRIC: Appropriate mood. Appropriate judgment. LABORATORY AND DIAGNOSTIC DATA: WBCs 9.4, hemoglobin 12.8, hematocrit 37, platelets 261,000. Sodium 135, potassium 3.4, BUN 22, creatinine 0.73, AST 13, ALT 15, lipase 177, albumin 3.3. CT reviewed by myself 07/20/2017 showing rement stomach containing air. No evidence of free intraperitoneal air. No evidence of free fluid. Evidence of gastric bypass in place. CT 07/31/2017 reviewed by myself showing less dilation of the gastric remnant; however, there is mild minimal retained air, a little dependent echoic fluid, again noting gastric bypass in place. I question a gastrogastric fistula. Upper GI without evidence of stricturing. Relatively normal contrast flow through. ASSESSMENT: Patient is a 51-year-old male with history of morbid obesity status post gastric bypass, significant weight loss who developed acute onset of nausea and vomiting and epigastric abdominal pain approximately two weeks. Concern for possible gastrojejunostomy ulcer or possible gastrogastric fistula. PLAN: After full clinical, radiologic and laboratory workup the patient with the above-named issues including severe acute onset of epigastric pain. At this point, I discussed with the patient and his at bedside my concern is that the patient may have developed the gastrojejunostomy ulcer. I discussed with the patient who admits to smoking history as gastric bypasses have potential ulcerogenic operation compounded by smoking and with clinical presentation this would be my concern. I further discussed nausea and vomiting may be directly needed to the pain or should be some nonvisualized stricturing leading to the increased nausea and vomiting. Also I question whether the patient has developed a gastrogastric fistula as there is air in the remnant stomach which is usually relatively difficult to be in place unless some abnormal communication. Given all this, I will start the patient on double-dose Protonix, Carafate and the patient will need to undergo endoscopy likely tomorrow. Discussed the risks and discussed this in detail. The patient states understanding and agrees. MD MYAH Grimm/VEENA /2:44 PM /3:05 PM MICHELLE
[2017-07-31] MEDS ORDERED: CHLORHEXIDINE GLUCONATE 2 % 1 PACK (2 CLOTHS) TOPICAL PRN (23:45)
[2017-07-31] MEDS ORDERED: POVIDONE IODINE 5% (ANTISEPSIS KIT) 4 APPLICATIONS EACH NARE PRN (23:45)
[2017-07-31] MEDS ORDERED: METOPROLOL TARTRATE 25 MG TAB PO PRN (23:45)
[2017-07-31] MEDS ORDERED: SODIUM CHLORID 0.9% 500 ML IV PRN (23:45)
[2017-07-31] MEDS ORDERED: INSULIN HUMAN REGULAR 1,000 UNITS/10 ML VIAL SQ PRN (23:45)
[2017-07-31] MEDS ORDERED: LACTATED RINGER'S 1000 ML IV PRN (23:45)
[2017-08-01 00:26] VITALS: BP 149/94; PULSE 52; RESP 18; TEMP 98.9; O2SAT 98
[2017-08-01 05:28] VITALS: BP 152/95; PULSE 59; RESP 18; TEMP 98.2; O2SAT 98
[2017-08-01] MEDS: SODIUM CHLOR 0.9% 1000 ML INJ 1,000 ML IV SCH (06:06)
[2017-08-01] MEDS: SUCRALFATE 1 GM/10 ML CUP PO SCH ×3 (06:06→11:24)
[2017-08-01 06:28] LABS: AUTOMATED NEUTROPHIL # 4.2 TH/MM3 (1.8-7.7); BASOPHIL % 0.4 % (0.0-2.0); EOSINOPHIL # 0.1 TH/MM3 (0-0.4); EOSINOPHIL % 2.1 % (0.0-4.0); HEMATOCRIT 33.1 % (39.0-51.0); HEMO FLAGS DIFF FINAL; LYMPHOCYTE # 2.1 TH/MM3 (1.0-4.8); MEAN CELL VOLUME 87.5 FL (80.0-100.0); MEAN CORPUSCULAR HEMOGLOBIN 29.7 PG (27.0-34.0); MEAN CORPUSCULAR HGB CONC 33.9 % (32.0-36.0); MONO % 9.7 % (0.0-8.0); NEUT % 58.8 % (16.0-70.0); PLATELET COUNT 217 TH/MM3 (150-450); RED BLOOD COUNT 3.78 MIL/MM3 (4.50-5.90); RED CELL DISTRIBUTION WIDTH 12.8 % (11.6-17.2); WHITE BLOOD COUNT 7.1 TH/MM3 (4.0-11.0)
[2017-08-01 06:41] LABS: ANION GAP 6 MEQ/L (5-15); AST (GOT) 11 U/L (15-37); BICARBONATE 27.4 MEQ/L (21.0-32.0); BLOOD UREA NITROGEN 12 MG/DL (7-18); CHLORIDE 106 MEQ/L (98-107); GLOMERULAR FILTRATION RATE 128 ML/MIN (>89); POTASSIUM 3.6 MEQ/L (3.5-5.1); SODIUM (NA) 139 MEQ/L (136-145)
[2017-08-01 06:42] LABS: ALT (GPT) 13 U/L (12-78)
[2017-08-01 06:45] LABS: ALKALINE PHOSPHATASE 78 U/L (45-117); TOTAL BILIRUBIN ADULT 0.4 MG/DL (0.2-1.0)
[2017-08-01 08:14] VITALS: BP 175/90; PULSE 70; RESP 20; TEMP 98.2; O2SAT 96
[2017-08-01] MEDS ORDERED: DO NOT ADM ANY ANTICOAGULANT DRUGS PRN (09:36)
[2017-08-01] MEDS: SODIUM CHLORIDE 0.9% FLUSH 10 ML FLUSH IV FLUSH SCH (09:36)
--- NOTE | 2017-08-01 09:36 | GIPROC ---
[facility] [address] [facility]. [facility], [address] EGD PROCEDURE REPORT EXAM DATE: 08/01/2017 PATIENT NAME: aJreth Lee MR #: [id number] BIRTHDATE: 1975 ATTENDING: Michael Howell MD ORDER #: [id number] BREEDER HEN SERVICE TECHNICIAN: Chris Palma and Elias Gabriel STATUS: inpatient INDICATIONS: The patient is a 41 yr old male here for an EGD due to epigastric abdominal pain , history of gastric bypass PROCEDURE PERFORMED: EGD, diagnostic MEDICATIONS: None and Per Anesthesia. TOPICAL ANESTHETIC: none CONSENT: The patient understands the risks and benefits of the procedure and understands that these risks include, but are not limited to: sedation, allergic reaction, infection, perforation and/or bleeding. Alternative means of evaluation and treatment include, among others: physical exam, x-rays, and/or surgical intervention. The patient elects to proceed with this endoscopic procedure. medical equipment was checked for proper function. Hand hygiene and appropriate measures for infection prevention was taken. After the risks, benefits and alternatives of the procedure were thoroughly explained, Informed consent was verified, confirmed and timeout was successfully executed by the treatment team. The patient was anesthetized with topical anesthesia and the Profilepasserax [id number] endoscope was introduced through the mouth and advanced to the anastomosis. There was noted to be erythematous tissue and large flat ulceration at gastrojejunostomy. Friability and bleeding were noted. Difficult to cannulate blind and roshan limbs. Retroflexion was not performed The gastroscope was then slowly withdrawn and removed. Ulcer at gastrojejunostomy with friable bleeding tissue. ADVERSE EVENTS: There were no complications. IMPRESSIONS: 1. Ulcer at gastrojejunostomy with friable bleeding tissue 2. Retroflexion was not performed RECOMMENDATIONS: 1. Continue PPI 2. Crafate PATIENT CONDITION: fair DISPOSITION: Observation REPEAT EXAM: Return as needed for EGD Michael Howell MD eSigned: Michael Howell MD 08/01/2017 9:36 AM cc: Michael Howell MD
[2017-08-01] MEDS ORDERED: PANT40TA3 PO (09:57)
[2017-08-01] MEDS ORDERED: SUCR1S PO (09:57)
--- NOTE | 2017-08-01 10:05 | HHI.DCPOC ---
Discharge Care Plan Diagnosis: (1) Gastric ulcer (2) Hypokalemia (3) Anemia (4) HTN (hypertension) (5) Intractable abdominal pain (6) H/O gastric bypass Goals to Promote Your Health * To prevent worsening of your condition and complications * To maintain your health at the optimal level Directions to Meet Your Goals Take your medications as prescribed - Carafate 1gm every 6 hours and Protonix 40mg twice a day Follow your dietary instruction - recommend avoiding spicy and/or high acid foods, caffeine, peppermint, chocolate, alcohol Follow activity as directed Keep your appointments as scheduled - Dr. Howell recommends follow up in 2- 3 weeks and plans for repeat EGD in 3-4 weeks Take your immunizations and boosters as scheduled If your symptoms worsen call your PCP, if no PCP go to Urgent Care Center or Emergency Room Smoking is Dangerous to Your Health. Avoid second hand smoke Call the 24-hour hour crisis hotline for domestic abuse at Jigna Michaud Aug 01, 2017 10:05
[2017-08-01] MEDS ORDERED: HYDR-3516 PO (10:12)
[2017-08-01] MEDS ORDERED: CYCL5TAB PO (10:33)
[2017-08-01] MEDS: DOCUSATE SODIUM 50 MG/SENNA 8.6 MG TAB PO SCH (11:24)
[2017-08-01] MEDS: PANTOPRAZOLE SODIUM 40 MG VIAL IV PUSH SCH (11:24)
[2017-08-01 12:22] VITALS: BP 146/86; PULSE 50; RESP 18; TEMP 97.9; O2SAT 96
--- NOTE | 2017-08-01 14:23 | HHI.DS ---
Discharge Summary Admission Date Jul 31, 2017 at 02:29 Discharge Date: Aug 01, 2017 Admitting Diagnosis intractable abdominal pain/gastric bypass patient (1) Intractable abdominal pain ICD Code: R10.9 - Unspecified abdominal pain Status: Acute (2) Hypokalemia ICD Code: E87.6 - Hypokalemia (3) H/O gastric bypass ICD Code: Z98.890 - Other specified postprocedural states Status: Acute (4) HTN (hypertension) ICD Code: I10 - Essential (primary) hypertension (5) Anemia ICD Code: D64.9 - Anemia, unspecified Procedures GI scope Brief History - From Admission This is a 41-year-old male with a PMH of Gastric Bypass 2015 in [facility] who presented to the ER with complaints of abdominal pain in addition to nausea and vomiting for approx 10 days. Seen in ER on 07/20/17 for similar complaints, CT Abd/Pelvis at that time w/ nonspecific thickening of wall of stomach of uncertain significance, endoscopy recommended, labs unremarkable, d/c'd from ER w/ Tramadol and Zofran. Returns now w/ ongoing abdominal pain unrelieved by Tramadol. On arrival, BP 192/114, HR 114, O2 sat 100% on RA, Afebrile. Hemoglobin 12.8, previously 15.5 on 07/20/17. Chemistry essentially remarkable except for BUN 22. K+ 3.4. U/a negative. CT Abd/Pelvis w/ mild amount of free fluid in dependent pelvis, no dilated loops of small and large bowel. Dr. Howell consulted by ER physician, recommended Upper GI Series and will eval in am. CBC/BMP: 08/01/17 0533 08/01/17 0533 Significant Findings Laboratory Tests Test 07/30/17 00:30 08/01/17 05:33 Red Blood Count 4.23 MIL/MM3 (4.50-5.90) 3.78 MIL/MM3 (4.50-5.90) Hemoglobin 12.8 GM/DL (13.0-17.0) 11.2 GM/DL (13.0-17.0) Hematocrit 37.0 % (39.0-51.0) 33.1 % (39.0-51.0) Neutrophils (%) (Auto) 77.7 % (16.0-70.0) Monocytes (%) (Auto) 9.6 % (0.0-8.0) 9.7 % (0.0-8.0) Urine Turbidity HAZY (CLEAR) Urine Ketones 40 mg/dL (NEG) Urine Urobilinogen 4.0 MG/DL (LESS THAN Urine Bacteria RARE /hpf (NONE) Blood Urea Nitrogen 22 MG/DL (7-18) Albumin 3.3 GM/DL (3.4-5.0) 2.7 GM/DL (3.4-5.0) Aspartate Amino Transf (AST/SGOT) 13 U/L (15-37) 11 U/L (15-37) Sodium Level 135 MEQ/L (136-145) Potassium Level 3.4 MEQ/L (3.5-5.1) Calcium Level 8.3 MG/DL (8.5-10.1) PE at Discharge GENERAL: Well-nourished, well-developed pleasant middle aged male patient in [facility]. at bedside. SKIN: Warm and dry. No rash. HEENT: Normocephalic. Atraumatic.Pupils equal and round. Mucous membranes pink and moist. CARDIOVASCULAR: Regular rate and rhythm. S1, S2 noted. No murmur appreciated. RESPIRATORY: No accessory muscle use. Clear to auscultation. Breath sounds equal bilaterally. GASTROINTESTINAL: Scaphoid abdomen, soft, nondistended, mild TTP at LUQ and epigastric area. Normoactive bowel sounds x4. MUSCULOSKELETAL: No obvious deformities. Extremities without clubbing, cyanosis , or edema. NEUROLOGICAL: Awake and alert. No obvious cranial nerve deficits. Motor grossly within normal limits. Normal speech. PSYCHIATRIC: Appropriate mood and affect; insight and judgment normal. Hospital Course 41yearold male with a PMH of Gastric Bypass 2014 in [facility] who presented to the ER with complaints of abdominal pain in addition to nausea and vomiting for approx 10 days. Intractable Abd Pain with hx of Gastric Bypass: c/o abdominal pain x10 days, seen in ER on 07/20/17 for similar complaints, CT Abd/Pelvis w/ thickening of stomach, unclear etiology, now w/ ongoing abdominal pain. CT Abd/Pelvis now w/ no acute findings General surgery Dr. Howell consulted Upper GI series reviewed, shows postsurgical changes consistent with gastric bypass; no evidence of leak/obstruction initially consulted GI for endoscopy ,Discussed with Dr. Howell, on the day of discharge after panendoscopy on 08/01 which confirmed ulcers, Dr. Howell recommended Protonix bid and Carafate q6h 2 hospitalization patient has been on IVF, antiemetics, and analgesics as needed [id number] encounter performed with the patient on discharge day, as well as physical exam, summary of hospitalization course and postdischarge plan has been D/W the patient. D/W nurse D/W surgery attending Discharge medications reviewed and printed and signed, post discharge follow up visit with PCP and other specialist as well as Brief hospital course and discharge summary has been placed. Pt Condition on Discharge: Fair Discharge Disposition: Discharge Home Discharge Time: > 30 minutes Discharge Instructions DIET: Follow Instructions for: Low Residue Diet Activities you can perform: Weight Bearing as Mariah Follow up Referrals: Gastroenterology - 2 Weeks with Michael Howell MD PCP Follow-up - 1 Week Surgical - 3 Weeks with Michael Howell MD New Medications: Cyclobenzaprine (Flexeril) 5 Mg Tab 5 MG PO BID PRN for prn, #15 TAB 0 Refills Pantoprazole (Pantoprazole) 40 Mg Tab 40 MG PO BID for Reflux for 30 Days, #60 TAB 0 Refills Hydrocodone/Acetaminophen (Hydrocodone-Acetamin 5-325 mg) 5 Mg-325 Mg Tablet 1 TAB PO Q4H PRN for pain, #10 TAB Sucralfate Liq (Sucralfate Liq) 1 Gram/10 Ml Marcella 1 GM PO Q6H for Ulcer management for 30 Days, #1 BOTTLE Continued Medications: Ondansetron Odt (Zofran Odt) 4 Mg Tab 4 MG SL Q6HR PRN for Nausea/Vomiting, #30 TAB 0 Refills Arthur Tirado MD Aug 01, 2017 14:23
== END 2017-08-01 15:05 | disposition home or self-care (01) ==
LOC: NEPE 22:11 → NEDA 07-31 02:29 → NEPFCDU 07-31 04:26
PROVIDERS: ADMIT Hospitalist; ATTEND Hospitalist
DX: K28.4 Chronic or unspecified gastrojejunal ulcer with hemorrhage (principal); R10.12 Left upper quadrant pain; R11.2 Nausea with vomiting, unspecified; R10.13 Epigastric pain; E87.6 Hypokalemia; D64.9 Anemia, unspecified; R06.6 Hiccough; I10 Essential (primary) hypertension; Z98.84 Bariatric surgery status
CPT/HCPCS: 00740; 43235; 74177; 74240; 80053; 81001; 82272; 83690; 85025; 96361; 96374; 96375; 96376; 99285; C9113; G0378; J1170; J2270; J2405; J7030; Q9963; Q9967

== ENCOUNTER 2018-03-03 22:21 | Emergency (ER) | payer BC ==
[~2018-03-03] VITALS: Ht 188 cm; Wt 68.0 kg
[~2018-03-03 22:21] MED LIST changes: +CYCL5TAB PO; +HYDR-3516 PO; +PANT40TA3 PO; +SUCR1S PO
[2018-03-03 22:25] VITALS: BP 226/105; PULSE 53; RESP 22; TEMP 97.6; O2SAT 100
--- NOTE | 2018-03-03 22:34 | PD ---
HPI Chief Complaint: Abdominal Pain Time Seen by Provider: 22:31 Travel History International Travel<30 days: No Contact w/Intl Traveler<30days: No Traveled to known affect area: No History of Present Illness HPI Mr. Lee is a 42-year-old male, , mostly Andorran-speaking, however he did bring family who translated for him. The patient is a bariatric patient, has had a Raman-en-Y gastric bypass done in 2014. Dr. Michael Howell did an endoscopy and apparently found an ulcer back in 2016. The patient comes in today complaining of last night acute onset of diffuse abdominal pain, mostly upper abdominal, 9 out of 10, associated with nausea vomiting and diarrhea. Patient denies any chest pain headache or neck pain. Patient also denies any fever, rash, sore throat, cough, shortness of breath, frequency/urgency/dysuria Patient has no known drug allergies Past medical history significant for gastric bypass, hypertension, arthroscopy of right knee,occasional tobacco use was 5 cigarettes per day PFSH Past Medical History Blood Disorders: No Heart Rhythm Problems: No Cancer: No Cardiovascular Problems: Yes High Cholesterol: No Chest Pain: No Congestive Heart Failure: No Endocrine: No Genitourinary: No Hypertension: Yes Immune Disorder: No Musculoskeletal: No Neurologic: No Psychiatric: No Reproductive: No Respiratory: No Past Surgical History Abdominal Surgery: Yes (GASTRIC BYPASS 2014) Social History Alcohol Use: No Tobacco Use: Yes (5 cigs per day) Substance Use: No Allergies-Medications (Allergen,Severity, Reaction): Coded Allergies: No Known Drug Allergies (Verified Allergy, Unknown, 03/03/18) Reported Meds & Prescriptions Reported Meds & Active Scripts Active Cipro (Ciprofloxacin HCl) 500 Mg Tab 500 Mg PO BID 5 Days Flagyl (Metronidazole) 500 Mg Tab 500 Mg PO TID 7 Days Codeine-Acetaminophen 30-300 mg Tab 1 Tab PO Q6HR PRN 3 Days Zofran Odt (Ondansetron Odt) 4 Mg Tab 4 Mg SL Q6HR PRN Flexeril (Cyclobenzaprine HCl) 5 Mg Tab 5 Mg PO BID PRN Hydrocodone-Acetamin 5-325 mg (Hydrocodone/Acetaminophen) 5 Mg-325 Mg Tablet 1 Tab PO Q4H PRN Pantoprazole (Pantoprazole Sodium) 40 Mg Tab 40 Mg PO BID 30 Days Sucralfate Liq (Sucralfate) 1 Gram/10 Ml Marcella 1 Gm PO Q6H 30 Days Ultram (Tramadol HCl) 50 Mg Tab 50 Mg PO Q4H PRN Zofran Odt (Ondansetron Odt) 4 Mg Tab 4 Mg SL Q6HR PRN Reported Trintellix (Vortioxetine) 10 Mg Tab 10 Mg PO DAILY Review of Systems General / Constitutional: No: Fever Eyes: No: Visual changes HENT: No: Headaches Cardiovascular: No: Chest Pain or Discomfort Respiratory: No: Shortness of Breath Gastrointestinal: Positive: Nausea, Vomiting, Diarrhea, Abdominal Pain Genitourinary: No: Dysuria Musculoskeletal: No: Pain Skin: No Rash Neurologic: No: Weakness Psychiatric: No: Depression Endocrine: No: Polydipsia Hematologic/Lymphatic: No: Easy Bruising Physical Exam Narrative GENERAL: SKIN: Warm and dry. HEAD: Atraumatic. Normocephalic. EYES: Pupils equal and round. No scleral icterus. No injection or drainage. ENT: No nasal bleeding or discharge. Mucous membranes pink and moist. NECK: Trachea midline. No JVD. CARDIOVASCULAR: Regular rate and rhythm. RESPIRATORY: No accessory muscle use. Clear to auscultation. Breath sounds equal bilaterally. GASTROINTESTINAL: Abdomen soft, non-tender, nondistended. MUSCULOSKELETAL: Extremities without clubbing, cyanosis, or edema. No obvious deformities. NEUROLOGICAL: Awake and alert. No obvious cranial nerve deficits. Motor grossly within normal limits. Five out of 5 muscle strength in the arms and legs. Normal speech. PSYCHIATRIC: Appropriate mood and affect; insight and judgment normal. Data Data Last Documented VS Vital Signs Date Time Temp Pulse Resp B/P (MAP) Pulse Ox O2 Delivery O2 Flow Rate FiO2 03/04/18 01:52 43 16 229/113 (151) 97 Room Air 03/03/18 22:25 97.6 Orders Orders Complete Blood Count With Diff (03/03/18 22:35) Comprehensive Metabolic Panel (03/03/18 22:35) Lipase (03/03/18 22:35) Urinalysis - C+S If Indicated (03/03/18 22:35) Ct Abd/Pel W/O Iv Contrast (03/03/18 22:35) Iv Access Insert/Monitor (03/03/18 22:35) Ecg Monitoring (03/03/18 22:35) Oximetry (03/03/18 22:35) NPO (03/03/18 22:35) Morphine Inj (Morphine Inj) (03/03/18 22:45) Sodium Chlor 0.9% 1000 Ml Inj (Ns 1000 M (03/03/18 22:35) Sodium Chloride 0.9% Flush (Ns Flush) (03/03/18 22:45) Electrocardiogram (03/03/18 22:35) Ondansetron Odt (Zofran Odt) (03/03/18 22:45) Morphine Inj (Morphine Inj) (03/04/18 02:00) Dicyclomine Inj (Bentyl Inj) (03/04/18 02:00) Prochlorperazine Inj (Compazine Inj) (03/04/18 02:30) Diphenhydramine Inj (Benadryl Inj) (03/04/18 02:30) Clonidine (Catapres) (03/04/18 02:45) Labs Laboratory Tests Test 03/03/18 23:25 03/04/18 02:30 White Blood Count 8.7 TH/MM3 Red Blood Count 5.27 MIL/MM3 Hemoglobin 15.3 GM/DL Hematocrit 46.3 % Mean Corpuscular Volume 87.9 FL Mean Corpuscular Hemoglobin 29.0 PG Mean Corpuscular Hemoglobin Concent 33.0 % Red Cell Distribution Width 15.2 % Platelet Count 225 TH/MM3 Mean Platelet Volume 9.2 FL Neutrophils (%) (Auto) 83.7 % Lymphocytes (%) (Auto) 12.8 % Monocytes (%) (Auto) 3.2 % Eosinophils (%) (Auto) 0.0 % Basophils (%) (Auto) 0.3 % Neutrophils # (Auto) 7.3 TH/MM3 Lymphocytes # (Auto) 1.1 TH/MM3 Monocytes # (Auto) 0.3 TH/MM3 Eosinophils # (Auto) 0.0 TH/MM3 Basophils # (Auto) 0.0 TH/MM3 CBC Comment DIFF FINAL Differential Comment Blood Urea Nitrogen 18 MG/DL Creatinine 1.13 MG/DL Random Glucose 145 MG/DL Total Protein 7.5 GM/DL Albumin 4.0 GM/DL Calcium Level 10.0 MG/DL Alkaline Phosphatase 91 U/L Aspartate Amino Transf (AST/SGOT) 21 U/L Alanine Aminotransferase (ALT/SGPT) 30 U/L Total Bilirubin 0.6 MG/DL Sodium Level 139 MEQ/L Potassium Level 3.7 MEQ/L Chloride Level 105 MEQ/L Carbon Dioxide Level 22.4 MEQ/L Anion Gap 12 MEQ/L Estimat Glomerular Filtration Rate 72 ML/MIN Lipase 78 U/L Urine Color YELLOW Urine Turbidity CLEAR Urine pH 7.0 Urine Specific Mears 1.017 Urine Protein 30 mg/dL Urine Glucose (UA) NEG mg/dL Urine Ketones 20 mg/dL Urine Occult Blood NEG Urine Nitrite NEG Urine Bilirubin NEG Urine Urobilinogen LESS THAN 2 mg/dL Urine Leukocyte Esterase NEG Urine RBC 4 /hpf Urine WBC 2 /hpf Urine Squamous Epithelial Cells <1 /hpf Urine Mucus FEW /lpf Microscopic Urinalysis Comment CULT NOT INDICATED MDM Medical Decision Making Medical Screen Exam Complete: Yes Emergency Medical Condition: Yes Medical Record Reviewed: Yes Differential Diagnosis Dyspeptic syndrome versus perforation versus ileus versus small bowel obstruction versus STEMI versus pancreatitis versus hepatitis versus colitis versus diverticulitis Narrative Course CBC shows no leukocytosis, no anemia, normal platelet count, and no major left shift Electrolytes are all within normal limits with the exception of a random glucose of 145 Normal kidney liver and pancreatic functions CT abdomen and pelvis read by radiologist as gallbladder appears unremarkable, mild nonspecific bowel gas pattern with postsurgical changes consistent with mild ileus or gastroenteritis. No obstruction, no free air. Diagnosis Primary Impression: Acute gastroenteritis Patient Instructions: Gastroenteritis (ED), General Instructions Scripts Ciprofloxacin (Cipro) 500 Mg Tab 500 MG PO BID for Infection for 5 Days, #10 TAB 0 Refills Prov: Dipesh Ro MD 03/04/18 Metronidazole (Flagyl) 500 Mg Tab 500 MG PO TID for Infection for 7 Days, #21 TAB 0 Refills Prov: Dipesh Ro MD 03/04/18 Codeine-Acetaminophen (Codeine-Acetaminophen) 30-300 mg Tab 1 TAB PO Q6HR Y for PAIN for 3 Days, #12 TAB 0 Refills Prov: Dipesh Ro MD 03/04/18 Ondansetron Odt (Zofran Odt) 4 Mg Tab 4 MG SL Q6HR Y for Nausea/Vomiting, #16 TAB 0 Refills Prov: Dipesh Ro MD 03/04/18 Disposition: 01 DISCHARGE HOME Condition: Stable Dipesh Ro MD Mar 03, 2018 22:34
[2018-03-03] MEDS ORDERED: SODIUM CHLOR 0.9% 1000 ML INJ 1,000 ML IV SCH (22:35)
[2018-03-03] MEDS ORDERED: SODIUM CHLORIDE 0.9% FLUSH 10 ML FLUSH IV FLUSH PRN (22:45)
[2018-03-03] MEDS ORDERED: MORPHINE SULFATE 4 MG/ML INJ IV PUSH ONE (22:45)
[2018-03-03] MEDS ORDERED: ONDANSETRON ODT 4 MG TAB PO ONE (22:45)
[2018-03-03] MEDS ORDERED: VORT1TAB2 PO (23:26)
--- NOTE | 2018-03-03 23:35 | RADRPT ---
EXAM DATE: 03/03/2018 11:26 PM EDT AGE/SEX: 42 years / Male INDICATIONS: Abdominal pain. CLINICAL DATA: This is the patient's initial encounter. Patient reports that signs and symptoms have been present for 1 day and indicates a pain score of 10/10. MEDICAL/SURGICAL HISTORY: Hypertension. Gastric bypass. RADIATION DOSE: 5.32 CTDI (mGy) [place] [facility] [place] CONTRAST[place] 07/20/2017. . TECHNIQUE: Multiple contiguous axial images were obtained through the abdomen. Images were obtained using multiple row detector helical technique. Using automated exposure control and adjustment of the mA and/or kV according to patient size, radiation dose was kept as low as reasonably achievable to o btain optimal diagnostic quality images. DICOM format image data is available electronically for rev iew and comparison. FINDINGS: Lower Lungs: The visualized lower lungs are clear. Liver: The liver has a homogeneous density without space-occupying lesion. There is no dilation of th e biliary tree. Spleen: Homogeneous density without enlargement. Pancreas: Unremarkable without mass or calcification. Kidneys: Normal in size and shape. No evidence of mass or hydronephrosis. Adrenal Glands: Unremarkable. Aorta: The aorta and proximal iliac vessels are grossly unremarkable without aneurysmal dilation. Bowel/Mesentery: No oral contrast was given limiting the sensitivity of examination. There is poor d elineation of the bowel loops with a small amount of mesenteric fat present. Postoperative changes ar e again noted involving the stomach. There is a nonobstructive bowel gas pattern which is similar in appearance to the prior study with multiple loops of nondilated air-containing small bowel again note d. There is no evidence of free air or fluid. Abdominal Wall: Intact. Retroperitoneum: No evidence of adenopathy in the retrocrural, para-aortic, or deep pelvic regions. Bladder: Contours are smooth. Reproductive Organs: No abnormal masses or calcifications seen. Inguinal: The inguinal region is unremarkable without evidence of adenopathy. Bony Structures: Unremarkable. CONCLUSION: 1. Noncontrast examination performed without oral contrast. 2. Mildly nonspecific bowel gas pattern with postsurgical changes involving the stomach. This may re present a mild gastroenteritis and/or ileus. This is similar in appearance to the prior study. 3. The gallbladder appears unremarkable. Electronically signed by: Donte Nguyen MD 03/03/2018 11:34 PM EDT
[2018-03-03 23:56] LABS: AUTOMATED NEUTROPHIL # 7.3 TH/MM3 (1.8-7.7); BASOPHIL % 0.3 % (0.0-2.0); HEMATOCRIT 46.3 % (39.0-51.0); HEMOGLOBIN 15.3 GM/DL (13.0-17.0); LYMPH % 12.8 % (9.0-44.0); LYMPHOCYTE # 1.1 TH/MM3 (1.0-4.8); MEAN CELL VOLUME 87.9 FL (80.0-100.0); MEAN PLATELET VOLUME 9.2 FL (7.0-11.0); MONO % 3.2 % (0.0-8.0); MONOCYTE # 0.3 TH/MM3 (0-0.9); NEUT % 83.7 % (16.0-70.0); PLATELET COUNT 225 TH/MM3 (150-450); RED BLOOD COUNT 5.27 MIL/MM3 (4.50-5.90); RED CELL DISTRIBUTION WIDTH 15.2 % (11.6-17.2); WHITE BLOOD COUNT 8.7 TH/MM3 (4.0-11.0)
[2018-03-04 00:24] LABS: ALT (GPT) 30 U/L (12-78); AST (GOT) 21 U/L (15-37); BICARBONATE 22.4 MEQ/L (21.0-32.0); BLOOD UREA NITROGEN 18 MG/DL (7-18); CHLORIDE 105 MEQ/L (98-107); CREATININE 1.13 MG/DL (0.60-1.30); GLOMERULAR FILTRATION RATE 72 ML/MIN (>89); GLUCOSE,RANDOM 145 MG/DL (74-106); SODIUM (NA) 139 MEQ/L (136-145)
[2018-03-04 00:27] LABS: ALKALINE PHOSPHATASE 91 U/L (45-117); TOTAL BILIRUBIN ADULT 0.6 MG/DL (0.2-1.0); TOTAL PROTEIN 7.5 GM/DL (6.4-8.2)
[2018-03-04] MEDS ORDERED: ZOFR4TAB3 SL (00:35)
[2018-03-04] MEDS ORDERED: METR-1 PO (00:35)
[2018-03-04] MEDS ORDERED: CIPR-9 PO (00:35)
[2018-03-04] MEDS ORDERED: CODE30TA2 PO (00:35)
[2018-03-04 01:52] VITALS: BP 229/113; PULSE 43; RESP 16; O2SAT 97
[2018-03-04] MEDS ORDERED: hydrALAZINE HCL 20 MG/ML VIAL IV PUSH ONE (02:00)
[2018-03-04] MEDS ORDERED: MORPHINE SULFATE 4 MG/ML INJ IV PUSH ONE (02:00)
[2018-03-04] MEDS ORDERED: DICYCLOMINE HCL 20 MG/2 ML VIAL IM ONE (02:00)
[2018-03-04] MEDS ORDERED: diphenhydrAMINE HCL 50 MG/ML VIAL IV PUSH ONE (02:30)
[2018-03-04] MEDS ORDERED: PROCHLORPERAZINE INJ 10 MG/2 ML VIAL IV PUSH ONE (02:30)
[2018-03-04] MEDS ORDERED: cloNIDine HCL 0.1 MG TAB PO ONE (02:45)
[2018-03-04 02:54] LABS: BILIRUBIN, URINE NEG (NEG); BLOOD, URINE NEG (NEG); GLUCOSE,URINE NEG (NEG); KETONE, URINE 20 mg/dL (NEG); MUCUS URINE FEW /lpf (OCC); NITRITE,URINE NEG (NEG); SQUAMOUS EPITHELIAL CELL URINE <1 /hpf (0-5); URINE COLOR YELLOW (YELLW/STRAW); URINE LEUKOCYTE ESTERASE NEG (NEG)
[2018-03-04 04:16] VITALS: BP 117/72; PULSE 53; RESP 16; O2SAT 98
--- NOTE | 2018-03-04 09:12 | EKG ---
Date Performed: 03/03/2018 Time Performed: 23:46:11 PTAGE: 42 years EKG: Sinus bradycardia MINIMAL VOLTAGE CRITERIA FOR LVH, CONSIDER NORMAL VARIANT ABNORMAL RHYTHM ECG PREVIOUS TRACING : 07/20/2017 00.29 Since the previous tracing, no significant change noted DOCTOR: Jaspal Nichols Interpretating Date/Time 03/04/2018 09:11:32
== END 2018-03-04 04:33 | disposition home or self-care (01) ==
LOC: NEPC 22:21
DX: K52.9 Noninfective gastroenteritis and colitis, unspecified (principal); R00.1 Bradycardia, unspecified; R94.31 Abnormal electrocardiogram [ECG] [EKG]; I10 Essential (primary) hypertension; F17.210 Nicotine dependence, cigarettes, uncomplicated; Z79.899 Other long term (current) drug therapy
CPT/HCPCS: 74176; 80053; 81001; 83690; 85025; 93005; 96361; 96372; 96374; 96375; 99285; J0500; J0780; J1200; J2270; J7030